=== PATIENT | female | born 1990 | race Caucasian/White ===

== ENCOUNTER 2017-09-13 13:07 | Emergency (ER) | payer MEDICAID ==
[2017-09-13] MEDS ORDERED: Albuterol/Ipratropium NEB.SOL* Albuterol 2.5 MG/Ipratropium 0.5 MG 3 ML INH ONE (15:31)
--- NOTE | 2017-09-13 15:36 | UC ---
Damon Deleon Gabriel, scribed for Viviana Varela MD on 09/13/17 at 1532 . Respiratory Complaint HPI - HPI Summary HPI Summary: This patient is a 26 year old F presenting to [facility] [place] a chief complaint of chest congestion since 09/09/17. The patient rates the pain 6/10 in severity. Patient reports dark brown productive cough, rhinorrhea, nasal congestion, fatigue, bilateral ear pain, subjective fever, chills, sore throat, and myalgia. Patient has been using her inhaler more than usual without progressive less relief. Pt has inhaler for asthma. no intubations, no hospitalizations. Pt denies sob. Pt has mirena ring Patients medication reviewed during this visit. - History of Current Complaint Chief Complaint: UCGeneralIllness Stated Complaint: URI Time Seen by Provider: 09/13/17 15:16 Hx Obtained From: Patient Hx Last Menstrual Period: spotting now Onset/Duration: Lasting Days - 4, Still Present Timing: Constant Severity Initially: Moderate Severity Currently: Moderate Pain Intensity: 6 Pain Scale Used: 0-10 Numeric Character: Cough: Productive Associated Signs And Symptoms: Positive: Fever, Nasal Congestion, Sinus Discomfort - Allergies/Home Medications Allergies/Adverse Reactions: Allergies Allergy/AdvReac Type Severity Reaction Status Date / Time MS Penicillins [Penicillins] Allergy Intermediate Hives/Diff. Verified 09/13/17 13:45 Breathing/I tching MS Terazosin [Terazosin] Allergy Intermediate Swelling Verified 09/13/17 13:45 MS Aspirin [Aspirin] AdvReac Intermediate Bleeding Verified 09/13/17 13:45 MS Progesterone AdvReac Intermediate Headache Verified 09/13/17 13:45 [Progesterone] Strawberries Allergy Severe Airway Uncoded 09/13/17 13:45 Obstruction Bees Allergy Intermediate Swelling Uncoded 09/13/17 13:45 Home Medications: Home Medications Albuterol HFA INHALER* [Ventolin HFA Inhaler*] 1 - 2 puff INH Q6HR PRN 09/13/17 [History Confirmed 09/13/17] Naproxen [Naprosyn 500 mg] 500 mg PO BID 09/13/17 [History Confirmed 09/13/17] PMH/Surg Hx/FS Hx/Imm Hx Previously Healthy: Yes Respiratory History: Asthma GI/ History: Other - Ovarian cysts Other GI/ History: ovarian cyst Other History Of: Negative For: Anticoagulant Therapy - Surgical History Surgical History: Yes Surgery Procedure, Year, and Place: TORSION CORRECTION- ovarian cysts. 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) Smoking Status (MU): Current Every Day Smoker Type: Cigarettes Amount Used/How Often: 1/2PPD Length of Time of Smoking/Using Tobacco: 6 YEARS Have You Smoked in the Last Year: Yes Household Exposure Type: Cigarettes - Immunization History Most Recent Tetanus Shot: 08/15/2010 Review of Systems Constitutional: Chills, Fatigue Eyes: Negative ENT: Negative, Sore Throat Respiratory: Shortness Of Breath, Cough Gastrointestinal: Negative Genitourinary: Negative Motor: Negative Neurovascular: Negative Musculoskeletal: Myalgia Neurological: Negative All Other Systems Reviewed And Are Negative: Yes Physical Exam Triage Information Reviewed: Yes Appearance: Well-Appearing, No Pain Distress, Well-Nourished Vital Signs: Initial Vital Signs Temp 98.3 F 09/13/17 13:38 Pulse 85 09/13/17 13:38 Resp 20 09/13/17 13:38 BP 114/63 09/13/17 13:38 Pulse Ox 99 09/13/17 13:38 Vital Signs Reviewed: Yes Eye Exam: Normal Eyes: Positive: Conjunctiva Clear ENT Exam: Normal ENT: Positive: Hearing grossly normal, Pharynx normal, Nasal congestion, TMs normal - scars from TM Dental Exam: Normal Neck exam: Normal Neck: Positive: Supple, Nontender, No Lymphadenopathy Respiratory Exam: Normal Respiratory: Positive: Chest non-tender, Rhonchi, Other: - + BS throughout scattered wheeze rhonci right base Cardiovascular Exam: Normal Cardiovascular: Positive: RRR, No Murmur, Pulses Normal Abdominal Exam: Normal Abdomen Description: Positive: Nontender, No Organomegaly, Soft Bowel Sounds: Positive: Present Musculoskeletal Exam: Normal Musculoskeletal: Positive: Strength Intact, ROM Intact Neurological Exam: Normal Neurological: Positive: Alert Psychological Exam: Normal Psychological: Positive: Normal Response To Family Skin Exam: Normal UC Diagnostic Evaluation - Laboratory O2 Sat by Pulse Oximetry: 99 - Radiology Radiology Interpretation Completed By: Radiologist - CXR reveals, NO EVIDENCE FOR ACTIVE CARDIOPULMONARY DISEASE. ED physician has reviewed this radiology report and agrees. Respiratory Course/Dx - Course Course Of Treatment: Pt with productive cough and wheeze progessive x 4 days. pt with h/o asthma. pt with fatigue, no documented fevers. pt with scattered wheeze and rhonci right base. cxr -? pna. Will start abx. mdi - Differential Dx/Diagnosis Provider Diagnoses: bronchitis Discharge - Discharge Plan Condition: Stable Disposition: HOME Prescriptions: Albuterol HFA INHALER* [Ventolin HFA Inhaler*] 1 - 2 puff INH Q4H PRN #1 mdi PRN Reason: wheeze Azithromycin TAB* [Zithromax TAB (Z-SADU) 250 mg #6 tabs] 2 tab PO .TODAY, THEN 1 DAILY #1 saud Patient Education Materials: Acute Bronchitis (ED) Referrals: Angel Sosa MD [Primary Care Provider] - Additional Instructions: - Stay well hydrated. Drink plenty of non-alcoholic, non-caffinated beverages - Take antibiotics 2 times a day as prescribed - Use inhaler - 2 puffs every 4 hours today, then eveyr 4 hours as needed - Okay to use over the counter medication for cough - After you have been on antibiotics for 2 days - change your toothbrush and your pillowcase. These infections are spread by secretions - do NOT share eating or drinking utensils - clean items you share with other people such as iphone, computer mouse, TV remote, etc. Once you have been on antibiotics for 2 days, change you pillowcase and your toothbrusth - Alternate ibuprofen (Advil, motrin) 600mg and tylenol eveyry 3 hours for pain or fever. Do NOT take ibuprofen if you are taking Naprosyn - you have been given a prescription for diflucan - okay to use if you develop a yeast infection following your antibiotic use - Call your doctor or return with questions or concerns The documentation as recorded by the Damon chew Gabriel accurately reflects the service I personally performed and the decisions made by , Viviana Varela MD.
[2017-09-13 16:06] VITALS: BP 122/76
--- NOTE | 2017-09-13 16:18 | RAD ---
INDICATION: Cough, asthma, rhonchi right base. COMPARISON: Comparison is made with a prior study from April 19, 2012. TECHNIQUE: Dual-energy PA and lateral views of the chest were obtained. FINDINGS: The heart is within normal limits in size. Mediastinal and hilar contours appear within normal limits. The lungs are clear. No pleural effusion is present. IMPRESSION: NO EVIDENCE FOR ACTIVE CARDIOPULMONARY DISEASE.
== END 2017-09-13 16:33 | disposition home or self-care (01) ==
LOC: UCEAST 13:07
DX: J40 Bronchitis, not specified as acute or chronic (principal); Z88.0 Allergy status to penicillin; Z88.6 Allergy status to analgesic agent; Z91.030 Bee allergy status; J45.909 Unspecified asthma, uncomplicated; F17.210 Nicotine dependence, cigarettes, uncomplicated
CPT/HCPCS: 71046; 99212; A9270-GY; G0463

== ENCOUNTER 2017-10-06 10:15 | Emergency (ER) | payer MEDICAID ==
--- NOTE | 2017-10-06 10:32 | UC ---
Skin Complaint HPI - HPI Summary HPI Summary: Concerned her Aisha is displaced and has ring worm on her chest - History of Current Complaint Chief Complaint: UCGeneralIllness Time Seen by Provider: 10/06/17 10:22 Stated Complaint: SKIN ISSUE AND PERSONAL ISSUE Hx Obtained From: Patient Hx Last Menstrual Period: mirena iud ?: No Onset/Duration: Lasting Days - 2 days rash on anterior right chest wall, Lasting Weeks - Mirena has felt out of place Onset Severity: Moderate Current Severity: Moderate Pain Intensity: 4 Pain Scale Used: 0-10 Numeric Character: Redness - anterior right chest wall-dry flakey Aggravating Factor(s): Nothing Alleviating Factor(s): Nothing Associated Signs & Symptoms: Positive: Rash. Negative: Red Streaks - Allergy/Home Medications Allergies/Adverse Reactions: Allergies Allergy/AdvReac Type Severity Reaction Status Date / Time aspirin Allergy increased Verified 10/06/17 10:25 bleeding Penicillins Allergy Rash Verified 10/06/17 10:23 terazosin Allergy Rash Verified 10/06/17 11:58 Strawberries Allergy Severe Airway Uncoded 09/13/17 13:45 Obstruction Bees Allergy Intermediate Swelling Uncoded 09/13/17 13:45 Review of Systems Constitutional: Negative Skin: Other - rash right anterior chest wall Eyes: Negative ENT: Negative Respiratory: Negative Cardiovascular: Negative Gastrointestinal: Negative Genitourinary: Negative, Other - IUD feels out of place Motor: Negative Neurovascular: Negative Musculoskeletal: Negative Neurological: Negative Psychological: Negative Is Patient Immunocompromised?: No All Other Systems Reviewed And Are Negative: Yes PMH/Surg Hx/FS Hx/Imm Hx Previously Healthy: No Respiratory History: Asthma Other History Of: Hepatitis C Negative For: Anticoagulant Therapy - Surgical History Surgical History: Yes Surgery Procedure, Year, and Place: TORSION CORRECTION- ovarian cysts. 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 Smoking Status (MU): Current Every Day Smoker Type: Cigarettes Amount Used/How Often: 1/2PPD Length of Time of Smoking/Using Tobacco: 6 YEARS Have You Smoked in the Last Year: Yes Household Exposure Type: Cigarettes Cessation Counseling: Patient Advised to Stop - Immunization History Most Recent Tetanus Shot: 08/15/2010 Physical Exam Triage Information Reviewed: Yes Appearance: Well-Appearing, No Pain Distress, Well-Nourished Vital Signs: Initial Vital Signs Temp 97.3 F 10/06/17 10:26 Pulse 95 10/06/17 10:26 Resp 16 10/06/17 10:26 BP 116/74 10/06/17 10:26 Pulse Ox 100 10/06/17 10:26 Vital Signs Reviewed: Yes Eye Exam: Normal Eyes: Positive: Conjunctiva Clear ENT Exam: Normal ENT: Positive: Normal ENT inspection, Hearing grossly normal, Pharynx normal, TMs normal, Uvula midline. Negative: Nasal congestion, Nasal drainage, Tonsillar swelling, Tonsillar exudate, Trismus, Muffled voice, Hoarse voice, Dental tenderness, Sinus tenderness Dental Exam: Normal Neck exam: Normal Neck: Positive: Supple, Nontender Respiratory Exam: Normal Respiratory: Positive: Chest non-tender, Lungs clear, Normal breath sounds, No respiratory distress, No accessory muscle use Cardiovascular Exam: Normal Cardiovascular: Positive: RRR, No Murmur, Pulses Normal, Brisk Capillary Refill Abdominal Exam: Normal Abdomen Description: Positive: Nontender, No Organomegaly, Soft. Negative: CVA Tenderness (R), CVA Tenderness (L) Musculoskeletal Exam: Normal Musculoskeletal: Positive: Strength Intact, ROM Intact, No Edema Neurological Exam: Normal Neurological: Positive: Alert, Muscle Tone Normal Psychological Exam: Normal Skin Exam: Normal - cm diameter red circular--dry area an right anterior chest wall Skin: Positive: rashes Diagnostics - Laboratory Diagnostic Studies Completed/Ordered: us- wnl iud inplace Course/Dx - Course Course Of Treatment: lotrisone on skin anterior chest wall, vaginal cultures to lab, ibuprofen prn, follow with pcp or planned parent bowles prn - Diagnoses Provider Diagnoses: PElvic pain, ring worm Discharge - Discharge Plan Condition: Stable Disposition: HOME Prescriptions: Clotrimazole/Betamethasone* [Lotrisone Cream*] 1 applic TOPICAL BID #45 gm Patient Education Materials: Ibuprofen (By mouth), Pelvic Pain in Women (ED) Referrals: Angel Sosa MD [Primary Care Provider] - If Needed
[2017-10-06 12:18] VITALS: BP 124/72
--- NOTE | 2017-10-06 12:36 | RAD ---
Indication: Pelvic pain. Real-time sonography of the pelvis was performed. The uterus measures 9.2 x 3.9 x 4.5 cm. Endometrial echo demonstrates a intrauterine device in appropriate position. Endometrial echo measures up to 6 mm. Right ovary measures 3.5 x 1.8 x 2.3 cm. Left ovary measures 3.0 x 2.3 x 2.0 cm. Doppler interrogation demonstrates flow in both ovaries. IMPRESSION: IUD in place. No adnexal masses are noted.
--- NOTE | 2017-10-07 15:31 | UC ---
- Progress Note Progress Note: Vaginal culture positive for gardnerella. Please let her know. Flagyl BID for 7 days sent to [facility]
== END 2017-10-06 12:47 | disposition home or self-care (01) ==
LOC: UCEAST 10:15
DX: R10.2 Pelvic and perineal pain (principal); B35.9 Dermatophytosis, unspecified; B96.89 Other specified bacterial agents as the cause of diseases classified elsewhere; Z87.891 Personal history of nicotine dependence
CPT/HCPCS: 76830; 81003; 84702; 87480; 87491; 87510; 87591; 87661; 99212; G0463

== ENCOUNTER 2017-11-09 13:52 | Emergency (ER) | payer OTHER ==
[2017-11-09 14:36] VITALS: BP 99/64
[2017-11-09] MEDS ORDERED: predniSONE TAB* 20 MG PO ONE (15:17)
[2017-11-09] MEDS ORDERED: Albuterol 2.5 MG/3 ML NEB.SOL* (0.083%) INH ONE (15:17)
--- NOTE | 2017-11-09 15:18 | UC ---
General HPI - HPI Summary HPI Summary: PT C/O BEING ILL FOR 2-3 WEEKS. C/O FERNANDES, COUGH, CHEST CONGES.TION, BURNING AND TIGHT LUNGS. NOTES HER CHEST IS SORE. HAS SUBJECTIVE FEVER AND CHILLS. WAS TX WITH A 5 DAY ANTIBIOTIC WITH NO RELIEF. +SBO AND GREEN SPUTUM. HAS HX ASTHMA AND INHALER IS NOT HELPING. TX ALEVE FLORAL MERCHANDISER. - History of Current Complaint Hx Obtained From: Patient Hx Last Menstrual Period: HAS AN IUD, DOES NOT HAVE REG PERIODS Onset/Duration: Gradual Onset Pain Intensity: 5 Alleviating: NOTHING Associated Signs & Symptoms: Positive: Cough, Fever, Headache, SOB <Deanna Og - Last Filed: 11/09/17 15:10> <Viviana Varela - Last Filed: 11/09/17 16:37> - History of Current Complaint Chief Complaint: UCRespiratory Stated Complaint: COUGH, VOICE LOSS Time Seen by Provider: 11/09/17 15:10 - Allergy/Home Medications Allergies/Adverse Reactions: Allergies Allergy/AdvReac Type Severity Reaction Status Date / Time aspirin Allergy increased Verified 11/09/17 14:26 bleeding Penicillins Allergy Rash Verified 11/09/17 14:26 terazosin Allergy Rash Verified 11/09/17 14:26 Strawberries Allergy Severe Airway Uncoded 11/09/17 14:26 Obstruction Bees Allergy Intermediate Swelling Uncoded 11/09/17 14:26 Home Medications: Home Medications Levonorgestrel (Iud) [Mirena IUD] 20 mcg IU 11/09/17 [History] PMH/Surg Hx/FS Hx/Imm Hx Respiratory History: Asthma Other History Of: Hepatitis C Negative For: Anticoagulant Therapy - Surgical History Surgical History: Yes Surgery Procedure, Year, and Place: TORSION CORRECTION- ovarian cysts. 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 Smoking Status (MU): Current Every Day Smoker Type: Cigarettes Amount Used/How Often: 1/2PPD Length of Time of Smoking/Using Tobacco: 6 YEARS Have You Smoked in the Last Year: Yes Household Exposure Type: Cigarettes - Immunization History Most Recent Tetanus Shot: 08/15/2010 Vaccination Up to Date: Yes <Deanna Og - Last Filed: 11/09/17 15:10> Review of Systems Constitutional: Fever, Chills Skin: Negative Eyes: Negative ENT: Negative Respiratory: Shortness Of Breath, Cough Cardiovascular: Negative Gastrointestinal: Negative Genitourinary: Negative Motor: Negative Neurovascular: Negative Musculoskeletal: Negative Neurological: Headache Psychological: Negative Is Patient Immunocompromised?: No All Other Systems Reviewed And Are Negative: Yes <Deanna Og - Last Filed: 11/09/17 15:10> Physical Exam Triage Information Reviewed: Yes Appearance: Well-Appearing Vital Signs: Initial Vital Signs Temp 98.4 F 11/09/17 14:27 Pulse 67 11/09/17 14:27 Resp 16 11/09/17 14:27 BP 99/64 11/09/17 14:27 Pulse Ox 98 11/09/17 14:27 Vital Signs Reviewed: Yes Eyes: Positive: Conjunctiva Clear ENT: Positive: Pharynx normal, TMs normal. Negative: Nasal congestion, Nasal drainage Respiratory: Positive: Lungs clear, No respiratory distress, Decreased breath sounds Cardiovascular: Positive: RRR, No Murmur Abdomen Description: Positive: Nontender, No Organomegaly, Soft Bowel Sounds: Positive: Present Musculoskeletal: Positive: ROM Intact Neurological: Positive: Alert Psychological: Positive: Age Appropriate Behavior Skin Exam: Normal <Deanna Og - Last Filed: 11/09/17 15:10> Vital Signs: Initial Vital Signs Temp 98.4 F 11/09/17 14:27 Pulse 67 11/09/17 14:27 Resp 16 11/09/17 14:27 BP 99/64 11/09/17 14:27 Pulse Ox 98 11/09/17 14:27 <Viviana Varela - Last Filed: 11/09/17 16:37> Diagnostics - Radiology No standard instances Xray Interpretation: No Acute Changes Radiology Interpretation Completed By: Radiologist <Deanna Og - Last Filed: 11/09/17 15:10> Re-Evaluation - Re-Evaluation First Eval Re-Evaluation Time: 15:50 Change: Improved - IMPROVED AERATION, EASIER TO BREATHE, LESS COUGH. <Deanna Og - Last Filed: 11/09/17 15:10> Course/Dx - Course Course Of Treatment: non toxic, not hypoxic. ill 2-3 weeks with ongoing f/c's and asthma. cxr=nad. will tx with steroid, albuterol and doxycycline for presumptive bacterial infection. pt will take risk of diarrhea and c-diff from repeat antibiotic. she agrees to start probiotics as well. - Differential Dx - Multi-Symptom Provider Diagnoses: exacerbation asthma. bronchitis <Deanna Og - Last Filed: 11/09/17 15:10> Discharge - Sign-Out/Discharge Documenting (check all that apply): Discharge - Billing Disposition and Condition Condition: IMPROVED Disposition: HOME <Deanna Og - Last Filed: 11/09/17 15:10> - Billing Disposition and Condition Condition: IMPROVED Disposition: HOME <Viviana Varela - Last Filed: 11/09/17 16:37> - Discharge Plan Condition: Improved Disposition: HOME Prescriptions: Albuterol HFA INHALER* [Ventolin HFA Inhaler*] 2 puff INH Q6H #1 mdi DOXYcycline CAP(*) [DOXYcycline 100MG CAP(*)] 100 mg PO BID 10 Days #20 cap predniSONE TAB* [Deltasone TAB*] 40 mg PO DAILY #8 tab Patient Education Materials: Asthma (DC) Referrals: Angel Sosa MD [Primary Care Provider] - 5 Days Attestation Statement User Type: Provider - I was available for consult. This patient was seen by the advanced practice provider. The patient was not presented to, seen by, or examined by me.-Estrada <Viviana Varela - Last Filed: 11/09/17 16:37>
--- NOTE | 2017-11-09 15:38 | RAD ---
HISTORY: Cough, shortness of breath, COMPARISONS: September 13, 2017 VIEWS: 4: Frontal dual-energy and lateral views of the chest. FINDINGS: CARDIOMEDIASTINAL SILHOUETTE: The cardiomediastinal silhouette is normal. RYLIE: The rylie are normal. PLEURA: The costophrenic angles are sharp. No pleural abnormalities are noted. LUNG PARENCHYMA: The lungs are clear. ABDOMEN: The upper abdomen is clear. There is no subphrenic gas. BONES AND SOFT TISSUES: No bone or soft tissue abnormalities are noted. OTHER: None. IMPRESSION: NO ACTIVE CARDIOPULMONARY DISEASE.
== END 2017-11-09 16:04 | disposition home or self-care (01) ==
LOC: UCCORT 13:52
DX: J45.901 Unspecified asthma with (acute) exacerbation (principal); F17.210 Nicotine dependence, cigarettes, uncomplicated; Z88.6 Allergy status to analgesic agent; Z88.0 Allergy status to penicillin; Z88.8 Allergy status to other drugs, medicaments and biological substances
CPT/HCPCS: 71046; 87502; 99212; G0463; J7512

== ENCOUNTER 2017-11-30 16:22 | Emergency (ER) | payer OTHER ==
[2017-11-30 16:33] VITALS: BP 106/70
--- NOTE | 2017-11-30 17:26 | UC ---
Throat Pain/Nasal Elliott HPI - HPI Summary HPI Summary: 27 female presents to the urgent care c/o nasal congestion, body aches, headache, nausea, low grade fever, sore throat, dry cough for the past 2 days. Pt also c/o mild pelvic cramping w/ white vaginal discharge w/ itchiness for the past 2 days. She is not sure if she is . She was on Mirena and was removed on 11/21/2017 and she had vaginal bleeding for 3 days. Pt has taking Nyquill to alleviate symptoms. Pain w/ swallowing is 4/10. She had Hx of gonorrhea at age 17. Pt denies SOB, chest pain, abdominal pain, N/V/D, urinary symptoms, fever, lower back pain. - History of Current Complaint Chief Complaint: UCGeneralIllness Stated Complaint: Ear pain, congested, sore throat Time Seen by Provider: 11/30/17 17:24 Hx Obtained From: Patient Hx Last Menstrual Period: unknown Onset/Duration: Gradual Onset, Lasting Days - 2 days, Still Present, Worse Since - today Severity: Mild Pain Intensity: 4 Pain Scale Used: 0-10 Numeric Cough: Nonproductive Associated Signs & Symptoms: Positive: Sinus Discomfort, Nasal Discharge. Negative: Fever - Epiglottits Risk Factors Epiglottis Risk Factors: Negative - Allergies/Home Medications Allergies/Adverse Reactions: Allergies Allergy/AdvReac Type Severity Reaction Status Date / Time aspirin Allergy increased Verified 11/30/17 16:33 bleeding Penicillins Allergy Rash Verified 11/30/17 16:33 terazosin Allergy Rash Verified 11/30/17 16:33 Strawberries Allergy Severe Airway Uncoded 11/30/17 16:33 Obstruction Bees Allergy Intermediate Swelling Uncoded 11/30/17 16:33 PMH/Surg Hx/FS Hx/Imm Hx Previously Healthy: Yes Respiratory History: Asthma Other History Of: Hepatitis C Negative For: Anticoagulant Therapy - Surgical History Surgical History: Yes Surgery Procedure, Year, and Place: TORSION CORRECTION- ovarian cysts. 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 Smoking Status (MU): Current Every Day Smoker Type: Cigarettes Amount Used/How Often: 1/2PPD Length of Time of Smoking/Using Tobacco: 6 YEARS Have You Smoked in the Last Year: Yes Household Exposure Type: Cigarettes - Immunization History Most Recent Tetanus Shot: 08/15/2010 Vaccination Up to Date: Yes Review of Systems Constitutional: Fever - subjective at home, Chills Skin: Negative Eyes: Negative ENT: Sore Throat, Nasal Discharge, Sinus Congestion, Sinus Pain/Tenderness Respiratory: Cough - dry Cardiovascular: Negative Gastrointestinal: Nausea Genitourinary: Negative Motor: Negative Neurovascular: Negative Musculoskeletal: Negative Neurological: Negative Psychological: Negative Is Patient Immunocompromised?: No All Other Systems Reviewed And Are Negative: Yes Physical Exam - Summary Physical Exam Summary: Vital signs: reviewed General: well developed, well nourished female sitting in the examining table w/o any acute distress. Head: Normocephalic, no lesions. Eyes: PERRLA, EOM's full, conjunctiva clear, fundi grossly normal. Ears: EAC's clear, TM's normal. Nose: erythematous nasal Mucosa w/ clear nasal discharge. no obstruction. MOUTH: Positive pharynx with erythema, no exudates, palatal petechiae. B/L tonsillar enlargement with no exudate. Uvula in midline. NECK: Supple, trachea is midline, Positive anterior cervical lymphadenopathy, no JVD, no carotid bruit, no c-spine tenderness, neck with full ROM. No meningeal signs, no Kernig's or brudzinskis signs. Heart: RR, no murmurs, no rubs, no gallops. Abdomen: Soft, no tenderness, no masses, BS normal. : Normal, no lesions, no discharge, no hernias noted. Pelvic: i was assited by nurse Eileen. External genitalia within normal limits. There is no lesions there is no masses noted. Speculum exam: The vaginal lyman are within normal limits w/ white cottage cheese vaginal discharge, no the lesions or rashes. The cervix is closed with no lesions or masses. There is no CMT's, and no adnexal masses. Sample sent to Lab for G/C and Affirm panel. Rectal: No lesions, no hemorrhoids, Back: Normal curvature, no tenderness. Extremities: FROM, no deformities, no edema, no erythema. Neuro: Physiological, no localizing findings. Skin: Normal, no rashes, no lesions noted. Triage Information Reviewed: Yes Vital Signs: Initial Vital Signs Temp 97.8 F 11/30/17 16:29 Pulse 84 11/30/17 16:29 Resp 19 11/30/17 16:29 BP 106/70 11/30/17 16:29 Pulse Ox 98 11/30/17 16:29 Throat Pain/Nasal Course/Dx - Course Course Of Treatment: 27 female presents to the urgent care c/o nasal congestion , body aches, headache, nausea, low grade fever, sore throat, dry cough for the past 2 days. Pt also c/o mild pelvic cramping w/ white vaginal discharge for the past 2 days. She is not sure if she is . She was on Mirena and was removed on 11/21/2017 and she had vaginal bleeding for 3 days. Pt has taking Nyquill to alleviate symptoms. Pain w/ swallowing is 4/10. She had Hx of gonorrhea at age 17. Pt denies SOB, chest pain, abdominal pain, N/V/D, urinary symptoms, fever, lower back pain. Pt declines STD's sreening since she recently had them done. Hx obtained.Pt w/ a white cottage cheese vaginal discharge on pelvic examination and URI on PE. Pt w/ probably Vulvovaginal candidiasis. Pt Rx Fluconazole 150mg PO. Sample sent to Lab for Affirm panel to r/o any abnormality. Pt will be notified of results. UA: +Bilirubin and ketones, test: negative. Rapdi strep: negative, Influenxa A&B: negative. Most likley and URI. Pt also advised to use saline drops to clear sinuses, and to increase fluid intake, rest and eat well. Pt understood and agreed with plan of care. - Differential Dx/Diagnosis Differential Diagnosis/HQI/PQRI: Influenza, Laryngitis, Mononucleosis, Otitis Media, Pharyngitis, Sinusitis, Tonsillitis, Other - , STD's, vaginitis Provider Diagnoses: 1-Acute upper respiratory infection. 2-adria vaginitis. 3-Screening for pregnacy Discharge - Sign-Out/Discharge Documenting (check all that apply): Discharge - Discharge Plan Condition: Good Disposition: HOME Prescriptions: Fluconazole [Fluconazole 150 mg tab] 150 mg PO ONCE #1 tablet metroNIDAZOLE [Flagyl] 500 mg PO BID #14 tablet Patient Education Materials: Upper Respiratory Infection (ED), Yeast Infection (ED) Referrals: [facility] – [place] PHYS[facility]IAN REFERRAL [Outside] - 3 Days Additional Instructions: 1- Please take medications as directed for your yeast infection. 2- Specimen were sent to lab, if anything abnormal you will receive a call from us for further treatment. 3-use saline drops as directed to clear sinuses. Increase fluid intake, eat well and rest. 4-If not improvement of symptoms please return to the urgent care for further treatment - Billing Disposition and Condition Condition: GOOD Disposition: HOME
--- NOTE | 2017-12-01 15:16 | UC ---
- Progress Note Progress Note: PLEASE NOTIFY PT OF BV FLAGYL 500 BID FOR 7 DAYS ERXED Discharge - Sign-Out/Discharge Documenting (check all that apply): Post-Discharge Follow Up - Discharge Plan Condition: Good Disposition: HOME Prescriptions: Fluconazole [Fluconazole 150 mg tab] 150 mg PO ONCE #1 tablet metroNIDAZOLE [Flagyl] 500 mg PO BID #14 tablet Patient Education Materials: Upper Respiratory Infection (ED), Yeast Infection (ED) Referrals: [facility] – [place] [facility] REFERRAL [Outside] - 3 Days Additional Instructions: 1- Please take medications as directed for your yeast infection. 2- Specimen were sent to lab, if anything abnormal you will receive a call from us for further treatment. 3-use saline drops as directed to clear sinuses. Increase fluid intake, eat well and rest. 4-If not improvement of symptoms please return to the urgent care for further treatment - Billing Disposition and Condition Condition: GOOD Disposition: HOME
== END 2017-11-30 18:46 | disposition home or self-care (01) ==
LOC: UCEAST 16:22
DX: J06.9 Acute upper respiratory infection, unspecified (principal); B37.3 Candidiasis of vulva and vagina; Z32.02 Encounter for pregnancy test, result negative; J45.909 Unspecified asthma, uncomplicated; Z88.6 Allergy status to analgesic agent; Z88.0 Allergy status to penicillin; F17.210 Nicotine dependence, cigarettes, uncomplicated
CPT/HCPCS: 81003; 84702; 87480; 87502; 87510; 87651; 87660; 99212; G0463

== ENCOUNTER 2017-12-05 15:11 | Emergency (ER) | payer OTHER ==
[2017-12-05 15:35] VITALS: BP 111/71
--- NOTE | 2017-12-05 16:35 | UC ---
Candace Deleon Edward, scribed for Viviana Varela MD on 12/05/17 at 1539 . Respiratory Complaint HPI - HPI Summary HPI Summary: 27 y/o female presents to [facility] c/o worsening nasal congestion and bilateral ear pain L>R. Pt was seen at [facility] on 12/01/17 for similar sx, dx with URI, but sx have worsened since. Pt also c/o productive cough, coughing up thick yellow mucus. + sinus congestion, PND. No fever, chills. Decreased appetite. Associated sx: chills, bilateral ear pain (L worse than R). Denies N/V. Pt unsure about fevers. Pt took Nyquil to treat sx. Positive sick contact at home. Pt allergic to penicillin. Smoker. Pt's medications reviewed on visit. Pt denies - History of Current Complaint Chief Complaint: UCRespiratory Stated Complaint: URI Time Seen by Provider: 12/05/17 15:35 Hx Obtained From: Patient Hx Last Menstrual Period: 11/21/2017 Onset/Duration: Lasting Days, Still Present Severity Initially: Mild Pain Intensity: 3 Pain Scale Used: 0-10 Numeric Character: Cough: Productive Associated Signs And Symptoms: Positive: Chills, Nasal Congestion - Allergies/Home Medications Allergies/Adverse Reactions: Allergies Allergy/AdvReac Type Severity Reaction Status Date / Time aspirin Allergy increased Verified 11/30/17 16:33 bleeding Penicillins Allergy Rash Verified 11/30/17 16:33 terazosin Allergy Rash Verified 11/30/17 16:33 Strawberries Allergy Severe Airway Uncoded 11/30/17 16:33 Obstruction Bees Allergy Intermediate Swelling Uncoded 11/30/17 16:33 PMH/Surg Hx/FS Hx/Imm Hx Previously Healthy: No Other Endocrine History: Negative: thyroid disease Respiratory History: Asthma Other History Of: Hepatitis C Negative For: Anticoagulant Therapy - Surgical History Surgical History: Yes Surgery Procedure, Year, and Place: TORSION CORRECTION- ovarian cysts. 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 Smoking Status (MU): Current Every Day Smoker Type: Cigarettes Amount Used/How Often: 1/2PPD Length of Time of Smoking/Using Tobacco: 6 YEARS Have You Smoked in the Last Year: Yes Household Exposure Type: Cigarettes - Immunization History Most Recent Tetanus Shot: 08/15/2010 Vaccination Up to Date: Yes Review of Systems Constitutional: Chills Skin: Negative Eyes: Negative ENT: Ear Ache - bilateral, Sinus Congestion Respiratory: Cough - productive Cardiovascular: Negative Gastrointestinal: Negative Genitourinary: Negative Motor: Negative Neurovascular: Negative Musculoskeletal: Negative Neurological: Negative Psychological: Negative All Other Systems Reviewed And Are Negative: Yes Physical Exam Triage Information Reviewed: Yes Appearance: Well-Appearing, No Pain Distress, Well-Nourished Vital Signs: Initial Vital Signs Temp 97.5 F 12/05/17 15:30 Pulse 106 12/05/17 15:30 Resp 18 12/05/17 15:30 BP 111/71 12/05/17 15:30 Pulse Ox 99 12/05/17 15:30 Vital Signs Reviewed: Yes Eye Exam: Normal Eyes: Positive: Conjunctiva Clear ENT: Positive: Hearing grossly normal, Pharynx normal, Nasal congestion, TM bulging, TM red, Uvula midline, Other - TM x 2 ++ fluid, erythema, buldging L>R turbinates inflammed + PND No exudate, no erythema uvula midline. Negative: TMs normal, Tonsillar swelling, Tonsillar exudate Dental Exam: Normal Neck exam: Normal Neck: Positive: Supple, Nontender, No Lymphadenopathy Respiratory Exam: Normal Respiratory: Positive: Chest non-tender, Lungs clear, Normal breath sounds, No respiratory distress, Other: - mild cough Cardiovascular Exam: Normal Cardiovascular: Positive: RRR, No Murmur, Pulses Normal Abdominal Exam: Normal Abdomen Description: Positive: Nontender, No Organomegaly, Soft Bowel Sounds: Positive: Present Musculoskeletal Exam: Normal Musculoskeletal: Positive: Strength Intact Neurological Exam: Normal Neurological: Positive: Alert Psychological Exam: Normal Psychological: Positive: Normal Response To Family Skin Exam: Normal UC Diagnostic Evaluation - Laboratory O2 Sat by Pulse Oximetry: 99 Respiratory Course/Dx - Course Course Of Treatment: Pt with progessive sinus congestion, pnd, sore throat and ear pain. Pt denies fevers, + chills. Pt with b/l TM bulging, fluid, erythema. Will RX abx, flonase. PCN - unsure reaction - states was infant. denies facial edema or difficulty breathing. Pt has taken Omnicef and cephalexin without difficulty Will Rx omnicef. hydrate. secretion precaution. OTC decongestant - Differential Dx/Diagnosis Provider Diagnoses: OM b/l Discharge - Sign-Out/Discharge Documenting (check all that apply): Discharge/Admit/Transfer - Discharge Plan Condition: Stable Disposition: HOME Prescriptions: Cefdinir [Cefdinir 300 MG CAP] 300 mg PO BID #14 capsule Fluticasone NASAL SPRAY 50MCG* [Flonase NASAL SPRAY 50MCG*] 2 spray BOTH NARES DAILY #1 btl Patient Education Materials: Ear Infection (ED) Referrals: No Primary Care Phys,NOPCP [Primary Care Provider] - Additional Instructions: - Stay well hydrated. Drink plenty of non-alcoholic, non-caffinated beverages. - Alternate ibuprofen (Advil, Motrin) 600mg and Tylenol every 3 hours for pain or fever. Take with food. Do NOT take for more than 4-5 days. - take antibiotics as prescribed until gone - These infections are spread by secretions - do NOT share eating or drinking utensils - clean items you share with other people such as cell phones, computer mouse, TV remote, computer tablets,etc. Once you start to feel better, change your toothbrush and your pillowcase. Once you have been on antibiotics for 2 days, change your toothbrush and your pillowcase. - get plenty of restful sleep - humidify the air in the room where you sleep - boil water, run a hot steam shower, vaporizer, cups of water by heat register - okay to take over the counter decongestant and cough medication - use nasal spray as instructed - contact your doctor or return with questions or concerns - Billing Disposition and Condition Condition: STABLE Disposition: HOME The documentation as recorded by the Candace chew Edward accurately reflects the service I personally performed and the decisions made by , Viviana Varela MD.
== END 2017-12-05 16:28 | disposition home or self-care (01) ==
LOC: UCEAST 15:11
DX: H66.93 Otitis media, unspecified, bilateral (principal); J45.909 Unspecified asthma, uncomplicated; Z88.6 Allergy status to analgesic agent; Z88.0 Allergy status to penicillin; F17.210 Nicotine dependence, cigarettes, uncomplicated
CPT/HCPCS: 99212; G0463

== ENCOUNTER 2018-08-13 13:31 | Emergency (ER) | payer OTHER ==
[2018-08-13 13:40] VITALS: BP 110/65
[2018-08-13 14:28] LABS: ABS Basophils 0 10^3/ul (0-0.2); ABS Eosinophils 0.2 10^3/ul (0-0.6); ABS Lymphocytes 1.8 10^3/ul (1.0-4.8); ABS Monocytes 0.3 10^3/ul (0-0.8); ABS Neutrophils 2.6 10^3/ul (1.5-7.7); ABS Nucleated RBC 0 10^3/ul; Eosinophil % 4.6 %; Hematocrit 39 % (35-47); Hemoglobin 13.2 g/dl (12.0-16.0); Lymphocyte % 36.4 %; Mean Corpuscular HGB Conc 34 g/dl (31-36); Mean Corpuscular Hemoglobin 31 pg (27-31); Mean Corpuscular Volume 93 fL (80-97); Mean Platelet Volume 7.9 fL (7.4-10.4); Nucleated Red Blood Cells % 0.1; Platelet Count 198 10^3/ul (150-450); Red Cell Distribution Width 14 % (10.5-15); White Blood Count 4.9 10^3/ul (3.5-10.8)
[2018-08-13 14:44] LABS: ALT 9 U/L (7-52); AST 13 U/L (13-39); Albumin 3.9 g/dL (3.2-5.2); Albumin/Globulin Ratio 1.6 (1-3); Alkaline Phosphatase 53 U/L (34-104); Anion Gap 5 mmol/L (2-11); BUN/Creatinine Ratio 22.4 (8-20); Blood Urea Nitrogen 13 mg/dL (6-24); C Reactive Protein 1.44 mg/L (<8.01); CO2 Carbon Dioxide 27 mmol/L (22-32); Calcium 8.9 mg/dL (8.6-10.3); Chloride 106 mmol/L (101-111); EGFR Non-African American 125.7 (>60); Globulin 2.5 g/dL (2-4); Glucose 65 mg/dL (70-100); Potassium 3.9 mmol/L (3.5-5.0); Sodium 138 mmol/L (135-145); Total Protein 6.4 g/dL (6.4-8.9)
[2018-08-13] MEDS: Acetaminophen TAB* 325 MG PO ONE (14:56)
[2018-08-13 15:01] LABS: Urine Appearance Clear; Urine Bilirubin Negative (Negative); Urine Blood Negative (Negative); Urine Color Straw; Urine Glucose Negative (Negative); Urine Ketones Negative (Negative); Urine Nitrite Negative (Negative); Urine Protein Negative (Negative); Urine Specific Gravity 1.006 (1.010-1.030); Urine Urobilinogen Negative (Negative)
--- NOTE | 2018-08-13 15:06 | ED ---
Abdominal Pain/Female - HPI Summary HPI Summary: The patient is a 27 y/o F presenting to [facility] with a chief complaint of sudden onset intermittent left-sided suprapubic pain starting in the last few days that worsens with activity She reports hx of ovarian cysts in the same area, with past surgical removal including one that was the size of her fist that twisted her canal and fallopian tube; tubal fhx in mother. She also notes that her LNMP was the end of May 2018. She is unsure if she is because she states that with her last two children, urine stick tests came back negative until she was about 10 weeks . She additionally c/o nausea, frequent urination, white vaginal discharge, and fatigue, which are symptoms similar to previous pregnancies. The pain is currently rated 7/10 in severity. She denies changes in BM, diarrhea, dysuria, hematuria, and diaphoresis. Her left ear is also in pain, and she reports that she had tympanostomy tubes placed as child, but when they were supposed to be removed, the physician ended up moving the left one further into the ear. She takes Suboxone 8mg in the morning and 4mg at night, as well as Ibuprofen for pain management. - History of Current Complaint Chief Complaint: EDAbdPain Stated Complaint: LEFT ABD PAIN Time Seen by Provider: 08/13/18 14:32 Hx Obtained From: Patient Hx Last Menstrual Period: 11/21/2017 Onset/Duration: Sudden Onset, Lasting Days, Still Present Timing: Days Severity Initially: Moderate Severity Currently: Moderate Pain Intensity: 7 Pain Scale Used: 0-10 Numeric Location: Suprapubic - primarily on left side Radiates: No Aggravating Factor(s): Nothing Alleviating Factor(s): Other: - Ibuprofen Associated Signs and Symptoms: Positive: Vaginal Discharge - white, but, Nausea , Other: - POSITIVE: frequent urination, fatigue; NEGATIVE: changes in BM, dysuria, hematuria. Negative: Diaphoresis, Vomiting, Diarrhea Allergies/Adverse Reactions: Allergies Allergy/AdvReac Type Severity Reaction Status Date / Time aspirin Allergy increased Verified 08/13/18 13:36 bleeding Penicillins Allergy Rash Verified 08/13/18 13:36 terazosin Allergy Rash Verified 08/13/18 13:36 Strawberries Allergy Severe Airway Uncoded 08/13/18 13:36 Obstruction Bees Allergy Intermediate Swelling Uncoded 08/13/18 13:36 Home Medications: Home Medications Buprenorp/Nalox 8-2 MG FILM [Suboxone 8 mg-2 mg Sl Film] 1 film PO DAILY [History Confirmed 08/13/18] PMH/Surg Hx/FS Hx/Imm Hx Endocrine/Hematology History: Denies: Hx Anticoagulant Therapy, Hx Diabetes, Hx Thyroid Disease Cardiovascular History: Denies: Hx Hypertension, Hx Pacemaker/ICD Respiratory History: Reports: Hx Asthma Denies: Hx Chronic Obstructive Pulmonary Disease (COPD) GI History: Denies: Hx Ulcer History: Denies: Hx Renal Disease Neurological History: Denies: Hx Dementia, Hx Seizures Psychiatric History: Denies: Hx Substance Abuse - Surgical History Surgery Procedure, Year, and Place: TORSION CORRECTION- ovarian cysts. tympanostomy tube insertion Infectious Disease History: Yes Infectious Disease History: Reports: Hx Hepatitis - C- completed treatment, Hx of Known/Suspected MRSA Denies: Hx Clostridium Difficile, Hx Human Immunodeficiency Virus (HIV), Hx Shingles, Hx Tuberculosis, Hx Known/Suspected VRE, Hx Known/Suspected VRSA, History Other Infectious Disease, Traveled Outside the [place] in Last 30 Days - Family History Known Family History: Positive: Cardiac Disease, Hypertension, Diabetes Negative: Renal Disease, Respiratory Disease, Seizure Disorder - Social History Alcohol Use: None Hx Substance Use: No Substance Use Type: Reports: None 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 Negative: Fever, Chills, Skin Diaphoresis Negative: Erythema Positive: Ear Ache - left ear, Other - nasal congestion. Negative: Sore Throat Negative: Chest Pain Positive: Cough. Negative: Shortness Of Breath Positive: Abdominal Pain - suprapubic, especially on left side, Nausea. Negative: Vomiting, Diarrhea Positive: discharge - white but not abnormal, frequency - increased. Negative: dysuria, hematuria Negative: Myalgia, Edema Negative: Rash Neurological: Other - NEGATIVE: dizziness All Other Systems Reviewed And Are Negative: Yes Physical Exam - Summary Physical Exam Summary: Constitutional: Well-developed, Well-nourished, Alert. (-) Distressed Skin: Warm, Dry HENT: Normocephalic; Atraumatic Eyes: Conjunctiva normal Neck: Musculoskeletal ROM normal neck. (-) JVD, (-) Stridor, (-) Tracheal deviation Cardio: Rhythm regular, rate normal, Heart sounds normal; Intact distal pulses; The pedal pulses are 2+ and symmetric. Radial pulses are 2+ and symmetric. (-) Murmur Pulmonary/Chest wall: Effort normal. (-) Respiratory distress, (-) Wheezes, (-) Rales Abd: Soft, Left adnexal tenderness, (-) epigastric tenderness, (-) Distension, ( -) Guarding, (-) Rebound Musculoskeletal: (-) Edema Lymph: (-) Cervical adenopathy Neuro: Alert, Oriented x3 Psych: Mood and affect Normal Triage Information Reviewed: Yes Vital Signs On Initial Exam: Initial Vitals Temp Pulse Resp BP Pulse Ox 98 F 87 14 110/65 99 08/13/18 13:38 08/13/18 13:38 08/13/18 13:38 08/13/18 13:38 08/13/18 13:38 Vital Signs Reviewed: Yes Diagnostics - Vital Signs Vital Signs Temp Pulse Resp BP Pulse Ox 08/13/18 13:38 98 F 87 14 110/65 99 - Laboratory Lab Results: Lab Results 08/13/18 08/13/18 08/13/18 Range/Units 14:13 14:13 14:13 WBC 4.9 (3.5-10.8) 10^3/ul RBC 4.20 (4.00-5.40) 10^6/ul Hgb 13.2 (12.0-16.0) g/dl Hct 39 (35-47) % MCV 93 (80-97) fL MCH 31 (27-31) pg MCHC 34 (31-36) g/dl RDW 14 (10.5-15) % Plt Count 198 (150-450) 10^3/ul MPV 7.9 (7.4-10.4) fL Neut % (Auto) 52.7 % Lymph % (Auto) 36.4 % [place] % (Auto) 5.7 % Eos % (Auto) 4.6 % Baso % (Auto) 0.6 % Absolute Neuts (auto) 2.6 (1.5-7.7) 10^3/ul Absolute Lymphs (auto) 1.8 (1.0-4.8) 10^3/ul Absolute Monos (auto) 0.3 (0-0.8) 10^3/ul Absolute Eos (auto) 0.2 (0-0.6) 10^3/ul Absolute Basos (auto) 0 (0-0.2) 10^3/ul Absolute Nucleated RBC 0 10^3/ul Nucleated RBC % 0.1 Sodium 138 (135-145) mmol/L Potassium 3.9 (3.5-5.0) mmol/L Chloride 106 (101-111) mmol/L Carbon Dioxide 27 (22-32) mmol/L Anion Gap 5 (2-11) mmol/L BUN 13 (6-24) mg/dL Creatinine 0.58 (0.51-0.95) mg/dL Est GFR ( Amer) 152.1 (>60) Est GFR (Non-Af Amer) 125.7 (>60) BUN/Creatinine Ratio 22.4 H (8-20) Glucose 65 L (70-100) mg/dL Lactic Acid 1.4 (0.5-2.0) mmol/L Calcium 8.9 (8.6-10.3) mg/dL Total Bilirubin 0.30 (0.2-1.0) mg/dL AST 13 (13-39) U/L ALT 9 (7-52) U/L Alkaline Phosphatase 53 (34-104) U/L C-Reactive Protein 1.44 (<8.01) mg/L Total Protein 6.4 (6.4-8.9) g/dL Albumin 3.9 (3.2-5.2) g/dL Globulin 2.5 (2-4) g/dL Albumin/Globulin Ratio 1.6 (1-3) Lipase 22 (11.0-82.0) U/L Result Diagrams: 08/13/18 14:13 08/13/18 14:13 Lab Statement: Any lab studies that have been ordered have been reviewed, and results considered in the medical decision making process. - Ultrasound No standard instances Ultrasound Interpretation Completed By: Radiologist Summary of Ultrasound Findings: Pelvis US: 1. Sonographic findings could be compatible with an involuting dominant left ovarian follicle. Please correlate to the patient's stage of menses and also correlate to beta hCG. If the patient' s beta hCG is positive this finding could be concerning for an ectopic . 2. Otherwise normal and age-appropriate transabdominal pelvic ultrasound. Re-Evaluation - Re-Evaluation First Eval Re-Evaluation Time: 15:25 Change: Unchanged Comment: The patient was given orange juice for hypoglycemia. Abdominal Pain Fem Course/Dx - Course Course Of Treatment: The patient is a 27 y/o F presenting to [facility] with a chief complaint of intermittent left-sided suprapubic pain starting in the last few days that worsens with activity She reports hx of ovarian cysts in the same area , with past surgical removal including one that was the size of her fist that twisted her canal and fallopian tube; tubal fhx in mother. She also notes that her LNMP was the end of May 2018, but she is unsure if she is . She additionally c/o nausea, frequent urination, white vaginal discharge, and fatigue, which are symptoms similar to previous pregnancies. She denies changes in BM, diarrhea, dysuria, hematuria, and diaphoresis. Her left ear is also in pain, and she reports that she had tympanostomy tubes placed as child. She takes Suboxone and Ibuprofen for pain management. Upon physical exam , the patient exhibits left adnexal tenderness. In the ED course, the patient was administered Tylenol. Blood work reveals decreased glucose and negative hCG. UA is unremarkable. Pelvis US reveals involuting left ovarian follicle. Since beta hCG is negative, ectopic is ruled out. She is diagnosed with left ovarian cyst and otitis media. She is given a prescription for Zithromax and Lidocaine patch. The patient eloped before proper discharge with re-evaluation and US results were confirmed. - Diagnoses Provider Diagnoses: Left ovarian cyst, Otitis media Discharge - Sign-Out/Discharge Documenting (check all that apply): Patient Departure - Patient eloped before offical discharge. - Discharge Plan Condition: Stable Disposition: ELOPEMENT Prescriptions: Azithromycin TAB* [Zithromax TAB (Z-SAUD) 250 mg #6 tabs] 2 tab PO .TODAY, THEN 1 DAILY #1 saud Lidocaine PATCH 5%* [Lidoderm 5% Patch*] 1 patch TRANSDERM DAILY #14 patch Patient Education Materials: Ovarian Cyst (ED), Ear Infection (ED) Referrals: [facility] [place] PH[facility]ICIAN REFERRAL [Outside] - 3 Days Evelin Shelton MD [Medical Doctor] - 3 Days Additional Instructions: Follow up your primary care physician in 2-3 days. Follow up with [facility] in 2-3 days. Return to the emergency department for any new or worsening symptoms. - Billing Disposition and Condition Condition: STABLE Disposition: Elopement
[2018-08-13 15:21] LABS: HCG Pregnancy < 0.60 mIU/mL
== END 2018-08-13 19:08 | disposition home or self-care (01) ==
LOC: ED 13:31
DX: N83.202 Unspecified ovarian cyst, left side (principal); H66.92 Otitis media, unspecified, left ear; F17.210 Nicotine dependence, cigarettes, uncomplicated; Z88.0 Allergy status to penicillin
CPT/HCPCS: 36415; 76856; 80053; 81003; 83605; 83690; 84702; 85025; 86140; 99282; A9270-GY

== ENCOUNTER 2018-08-14 12:33 | Emergency (ER) | payer OTHER ==
[2018-08-14 13:18] VITALS: BP 102/61
--- NOTE | 2018-08-14 14:06 | UC ---
Dizzy HPI HPI Summary: 5 DAYS OF FEELING LIGHTHEADED AND DIZZY. THIS MORNING STATES SHE HAD A HARD TIME EVEN GETTING OUT OF BED. HAS A HEADACHE AND NASAL CONGESTION. WAS SEEN IN THE ER YESTERDAY FOR PELVIC PAIN AND WAS DIAGNOSED WITH AN OVARIAN CYST AND GIVEN A LIDOCAINE PATCH. SHE WAS ALSO GIVEN A PRESCRIPTION FOR AZITHROMYCIN FOR PRESUMPTIVE OTITIS MEDIA. PT STATES HER EAR PAIN COMES AND GOES. WORSE AT NIGHT BUT NONE NOW. PATIENT LEFT THE ED PRIOR TO RECEIVING DISCHARGE INSTRUCTIONS AND SO WAS UNAWARE OF THESE PRESCRIPTIONS AND DID NOT PICK THEM UP. STATES TODAY'S VISIT IS UNRELATED. - History Of Current Complaint Chief Complaint: UCDizziness Stated Complaint: LOW BLOODSUGAR Time Seen by Provider: 08/14/18 13:10 Hx Obtained From: Patient Hx Last Menstrual Period: end of may Onset/Duration: Gradual Onset, Lasting Days, Still Present Timing: Constant Severity Initially: Moderate Severity Currently: Moderate Pain Intensity: 5 Pain Scale Used: 0-10 Numeric Character: Lightheaded, Dizzy Alleviating Factor(s): Nothing Associated Signs And Symptoms: Negative: Nausea, Vomiting, SOB, Change In Medication - Allergies/Home Medications Allergies/Adverse Reactions: Allergies Allergy/AdvReac Type Severity Reaction Status Date / Time aspirin Allergy increased Verified 08/14/18 13:19 bleeding Penicillins Allergy Rash Verified 08/14/18 13:19 terazosin Allergy Rash Verified 08/14/18 13:19 Strawberries Allergy Severe Airway Uncoded 08/14/18 13:19 Obstruction Bees Allergy Intermediate Swelling Uncoded 08/14/18 13:19 Home Medications: Home Medications Buprenorp/Nalox 4-1 MG FILM [Suboxone 4 mg-1 mg Sl Film] 1 film SL FILM DAILY [History Confirmed 08/14/18] PMH/Surg Hx/FS Hx/Imm Hx Respiratory History: Asthma Other History Of: Hepatitis C Negative For: Anticoagulant Therapy - Surgical History Surgical History: Yes Surgery Procedure, Year, and Place: TORSION CORRECTION- ovarian cysts. 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 Smoking Status (MU): Heavy Every Day Tobacco Smoker Type: Cigarettes Amount Used/How Often: 1/2PPD Length of Time of Smoking/Using Tobacco: 6 YEARS Have You Smoked in the Last Year: Yes Household Exposure Type: Cigarettes - Immunization History Most Recent Tetanus Shot: 08/15/2010 Vaccination Up to Date: Yes Review of Systems All Other Systems Reviewed And Are Negative: Yes Constitutional: Positive: Negative ENT: Positive: Nasal Discharge Respiratory: Positive: Negative Cardiovascular: Positive: Negative Gastrointestinal: Positive: Negative Neurological: Positive: Weakness, Other - DIZZY Physical Exam Triage Information Reviewed: Yes Appearance: No Pain Distress, Well-Nourished, Ill-Appearing - APPEARS UNCOMFORTABLE Vital Signs: Initial Vital Signs Temp 98.9 F 08/14/18 13:12 Pulse 72 08/14/18 13:12 Resp 18 08/14/18 13:12 BP 102/61 08/14/18 13:12 Pulse Ox 98 08/14/18 13:12 Vital Signs Reviewed: Yes Eyes: Positive: Conjunctiva Clear ENT: Positive: Hearing grossly normal, Pharynx normal, TMs normal - SCAR TISUE BUT NO CLEAR OTITIS Neck: Positive: Supple, Nontender, No Lymphadenopathy Respiratory Exam: Normal Cardiovascular Exam: Normal Abdomen Description: Positive: Soft, Other: - DIFFUSELY TENDER. NO REBOUND OR RIGIDITY. Negative: Distended, Guarding Bowel Sounds: Positive: Present Musculoskeletal: Positive: No Edema Neurological: Positive: Alert Psychological: Positive: Age Appropriate Behavior Skin: Negative: Rashes Dizzy Course/Dx - Course Course Of Treatment: UNCLEAR ETIOLOGY OF PATIENT'S SYMPTOMS. NO CLEAR EAR INFECTION ON EXAM TODAY. LAB WORK IN ED YESTERDAY WAS ALL UNREMARKABLE. PATIENT STATES SHE HASN'T HAD MUCH TO EAT OR DRINK TODAY. OFFERED IV FLUIDS WHICH PATIENT DECLINED. FLU SWAB WAS NEGATIVE. DISCUSSED TRANSFER BACK TO THE EMERGENCY DEPARTMENT FOR FURTHER EVALUATION. PATIENT DECLINED. I RECOMMENDED CAREFUL OBSERVATION AT HOME WITH LOW THRESHOLD FOR RETURN TO THE ED SHOULD HER SYMPTOMS WORSEN OR FAIL TO IMPROVE. PATIENT REQUESTED NOTE FOR WORK WHICH WAS PROVIDED. - Differential Dx/Diagnosis Provider Diagnosis: Dizziness of unknown cause Discharge - Sign-Out/Discharge Documenting (check all that apply): Patient Departure All imaging exams completed and their final reports reviewed: No Studies - Discharge Plan Condition: Stable Disposition: HOME Patient Education Materials: Viral Syndrome (ED) Forms: *Work Release Referrals: [facility] [Outside] - If Needed Additional Instructions: FLU SWAB NEGATIVE. YOUR LABS IN THE ER YESTERDAY WERE ALL UNREMARKABLE. UNCLEAR ETIOLOGY OF YOUR SYMPTOMS TODAY. YOU MAY HAVE PICKED UP A VIRAL ILLNESS THAT HOPEFULLY WILL RESOLVE ON ITS OWN IN THE NEXT FEW DAYS. STAY WELL RESTED AND HYDRATED. RETURN TO THE ER WITHOUT FAIL IF YOUR SYMPTOMS WORSEN - THAT IS IF YOU DEVELOP FEVER, WORSENING DIZZINESS, PAIN, NAUSEA/VOMITING OR ANY OTHER CONCERNING SYMPTOMS. THE PRESCRIPTIONS FOR THE TOPICAL LIDOCAINE PATCH AND THE ANTIBIOTICS ARE WAITING FOR YOU AT YOUR PHARMACY FROM YOUR ER VISIT YESTERDAY. GO AHEAD AND PICK THESE MEDICATIONS UP. THERE IS NO EVIDENCE OF EAR INFECTION ON YOUR EXAM TODAY BUT SHOULD YOU DECIDE TO START THE ANTIBIOTIC PLEASE TAKE IT FOR THE FULL COURSE TO HELP PREVENT DEVELOPING RESISTANCE TO THE MEDICATION. - Billing Disposition and Condition Condition: STABLE Disposition: Home
== END 2018-08-14 14:43 | disposition home or self-care (01) ==
LOC: UCEAST 12:33
DX: R42 Dizziness and giddiness (principal); J45.909 Unspecified asthma, uncomplicated; F17.210 Nicotine dependence, cigarettes, uncomplicated; Z88.6 Allergy status to analgesic agent; Z88.0 Allergy status to penicillin; Z88.8 Allergy status to other drugs, medicaments and biological substances; Z91.018 Allergy to other foods; Z91.030 Bee allergy status
CPT/HCPCS: 93005; 99211; G0463

== ENCOUNTER 2018-12-06 21:51 | Emergency (ER) | payer OTHER ==
--- NOTE | 2018-12-07 00:50 | ED ---
Abdominal Pain/Female - HPI Summary HPI Summary: The patient is a 28 y/o F presenting to [facility] with a chief complaint of diffuse suprapubic abd cramping starting two days ago. Today, after she had been active all day, she went to the bathroom and noticed that there was minimal vaginal spotting on two occasions without any blood clotting present. The spotting has since relieved. The pain is currently rated 6/10 in severity. She additionally c /o vaginal pressure, nausea, one episode of vomiting, decreased appetite, SOB with onset of cramping. There are no specific aggravating or alleviating factors. She is currently 19 weeks , due on May 04, 2019. She began feeling movement about three weeks ago, and the last movement she felt was this morning. A0. All past pregnancies were full-term vaginal births without complications. Her [facility] OF [facility] SUPERVIS[facility] is [facility]. - History of Current Complaint Chief Complaint: EDOBProblems Stated Complaint: 19 WEEKS , SPOTTING PER PT Time Seen by Provider: 12/07/18 00:41 Hx Obtained From: Patient Hx Last Menstrual Period: end of may Onset/Duration: Sudden Onset, Lasting Days - two days, Still Present - abdominal cramping is still present, Resolved - vaginal spotting has resolved Timing: Hours Severity Initially: Moderate Severity Currently: Moderate Pain Intensity: 6 Pain Scale Used: 0-10 Numeric Location: Suprapubic Radiates: No Character: Cramping Aggravating Factor(s): Nothing Alleviating Factor(s): Nothing Associated Signs and Symptoms: Positive: Decreased Appetite, Vaginal Bleeding - two episodes of spotting that have resolved, no clotting, Nausea, Vomiting - one episode, Other: - vaginal pressure, SOB with onset of cramping Allergies/Adverse Reactions: Allergies Allergy/AdvReac Type Severity Reaction Status Date / Time aspirin Allergy increased Verified 10/14/18 13:49 bleeding Penicillins Allergy Rash Verified 10/14/18 13:49 terazosin Allergy Rash Verified 10/14/18 13:49 Strawberries Allergy Severe Airway Uncoded 10/14/18 13:49 Obstruction Bees Allergy Intermediate Swelling Uncoded 10/14/18 13:49 PMH/Surg Hx/FS Hx/Imm Hx Endocrine/Hematology History: Denies: Hx Anticoagulant Therapy, Hx Diabetes, Hx Thyroid Disease Cardiovascular History: Denies: Hx Hypertension, Hx Pacemaker/ICD Respiratory History: Reports: Hx Asthma Denies: Hx Chronic Obstructive Pulmonary Disease (COPD) GI History: Denies: Hx Ulcer History: Denies: Hx Renal Disease Opthamlomology History: Denies: Hx Legally Blind Neurological History: Denies: Hx Dementia, Hx Seizures Psychiatric History: Denies: Hx Substance Abuse - Surgical History Surgery Procedure, Year, and Place: TORSION CORRECTION- ovarian cysts. 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 Denies: Hx Clostridium Difficile, Hx Human Immunodeficiency Virus (HIV), Hx Shingles, Hx Tuberculosis, Hx Known/Suspected VRE, Hx Known/Suspected VRSA, History Other Infectious Disease, Traveled Outside the [place] in Last 30 Days - Family History Known Family History: Positive: Cardiac Disease, Hypertension, Diabetes Negative: Renal Disease, Respiratory Disease, Seizure Disorder - Social History Alcohol Use: None Hx Substance Use: No Substance Use Type: Reports: None 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 Hx Tobacco Use: Yes Smoking Status (MU): Heavy Every Day Tobacco Smoker Type: Cigarettes Amount Used/How Often: 1/2PPD Length of Time of Smoking/Using Tobacco: 6 YEARS Have You Smoked in the Last Year: Yes Review of Systems Positive: Shortness Of Breath - with cramping Positive: Abdominal Pain - constant suprapubic cramping with intermittent episodes of worsening, Vomiting - one episode, Nausea, Other - decreased appetite secondary to abd cramping Positive: other - two episodes of minimal vaginal spotting without clots ( resolved), vaginal pressure All Other Systems Reviewed And Are Negative: Yes Physical Exam - Summary Physical Exam Summary: Appearance: well appearing, no pain distress Skin: warm, dry, reflects adequate perfusion Head/face: normal Eyes: EOMI, JOAQUÍN ENT: mucous membranes moist Neck: supple, non-tender Respiratory: CTA, breath sounds present Cardiovascular: RRR, pulses symmetrical Abdomen: non-tender, soft Bowel Sounds: present Musculoskeletal: normal, strength/ROM intact Neuro: normal, sensory motor intact, A&Ox3 Pelvic Exam: Cervix closed, no blood, slight white discharge Triage Information Reviewed: Yes Vital Signs On Initial Exam: Initial Vitals Temp Pulse Resp BP Pulse Ox 98.3 F 95 18 109/60 100 12/06/18 22:08 12/06/18 22:08 04/24/19 22:08 12/06/18 22:08 12/06/18 22:08 Vital Signs Reviewed: Yes Diagnostics - Vital Signs Vital Signs Temp Pulse Resp BP Pulse Ox 12/07/18 00:21 86 123/66 97 12/07/18 00:18 87 99 12/06/18 22:08 98.3 F 95 18 109/60 100 - Laboratory Lab Statement: Any lab studies that have been ordered have been reviewed, and results considered in the medical decision making process. - Ultrasound No standard instances Ultrasound Interpretation Completed By: ED Physician Summary of Ultrasound Findings: US performed at bedside by ED physician. heart tone with rate of 146 BPM. Fetus active. No abruption. Measuring 20 weeks by BPD by bedside US. Re-Evaluation - Re-Evaluation First Eval Re-Evaluation Time: 02:25 Change: Unchanged Comment: We discussed discharge based on results thus far. She will follow up with her RIGHT OF WAY SUPERVISOR tomorrow concerning visit. Abdominal Pain Fem Course/Dx - Course Course Of Treatment: Nurses notes reviewed. Patient with no bleeding on vaginal exam and has blood type O positive. Her fetus is viable with heart tones and appropriate size for dates. Fetus is active on ultrasound. No abruption. Likely Marcial Alcocer contractions. Patient is very comfortable and has had any significant discomfort here. - Diagnoses Differential Diagnosis: Positive: Other - Missed or incomplete , Marcial Alcocer contractions, abruption, threatened Provider Diagnoses: Bent Alcocer' contraction Is Visit Related: Yes - Patient is 19 weeks pregant with two previous normal pregnancies. Discharge - Sign-Out/Discharge Documenting (check all that apply): Patient Departure - Patient will be discharged home. Patient Received Moderate/Deep Sedation with Procedure: No - Discharge Plan Condition: Improved Disposition: HOME Patient Education Materials: Bent Alcocer Contractions (ED) Forms: *Work Release Referrals: Seven Hamlin MD [Medical Doctor] - Additional Instructions: Call your dock associate first thing in the morning to schedule prompt follow-up. Tylenol as needed for discomfort. Return if worse, new symptoms or other concerns. - Billing Disposition and Condition Condition: IMPROVED Disposition: Home - Attestation Statements Document Initiated by Scribe: Yes Documenting Scribe: Sandrine Elias Provider For Whom Scribe is Documenting (Include Credential): Dr. Larry Kincaid MD Scribe Attestation: I, Sandrine Elias, scribed for Dr. Larry Kincaid MD on 12/07/18 at 0412. Scribe Documentation Reviewed: Yes Provider Attestation: The documentation as recorded by the scribe, Sandrine Elias accurately reflects the service I personally performed and the decisions made by me, Dr. Larry Kincaid MD Status of Scribe Document: Viewed
[2018-12-07 02:33] VITALS: BP 113/69
== END 2018-12-07 02:37 | disposition home or self-care (01) ==
LOC: ED 21:51
DX: O47.02 False labor before 37 completed weeks of gestation, second trimester (principal); O99.331 Smoking (tobacco) complicating pregnancy, first trimester; Z3A.19 19 weeks gestation of pregnancy
CPT/HCPCS: 76815; 99282

== ENCOUNTER 2019-01-30 13:43 | Emergency (ER) | payer OTHER ==
[2019-01-30 14:10] VITALS: BP 99/60
--- NOTE | 2019-01-30 15:01 | UC ---
Throat Pain/Nasal Elliott HPI - HPI Summary HPI Summary: pt is 20+ week gravid with head congestion, left ear pain, pnd, cough and wheeze. Pt with good movemen. no fever, chills. + fatigue + po. Pt with h /o asthma + tobacco use. Pt has MDI - uses this - pt has nebulizer - no meds Meds reviewed no PCP - History of Current Complaint Chief Complaint: UCEar Stated Complaint: EAR/SINUS Time Seen by Provider: 01/30/19 15:01 Hx Obtained From: Patient Hx Last Menstrual Period: end of may ?: Yes Onset/Duration: Gradual Onset Pain Intensity: 4 - Allergies/Home Medications Allergies/Adverse Reactions: Allergies Allergy/AdvReac Type Severity Reaction Status Date / Time aspirin Allergy increased Verified 01/30/19 14:10 bleeding Penicillins Allergy Rash Verified 01/30/19 14:10 terazosin Allergy Rash Verified 01/30/19 14:10 Strawberries Allergy Severe Airway Uncoded 01/30/19 14:10 Obstruction Bees Allergy Intermediate Swelling Uncoded 01/30/19 14:10 PMH/Surg Hx/FS Hx/Imm Hx Previously Healthy: Yes Other History Of: Hepatitis C Negative For: Anticoagulant Therapy - Surgical History Surgical History: Yes Surgery Procedure, Year, and Place: TORSION CORRECTION- ovarian cysts. 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 Smoking Status (MU): Light Every Day Tobacco Smoker Type: Cigarettes Amount Used/How Often: 1/2PPD Length of Time of Smoking/Using Tobacco: 6 YEARS Have You Smoked in the Last Year: Yes Household Exposure Type: Cigarettes - Immunization History Most Recent Tetanus Shot: 08/15/2010 Vaccination Up to Date: Yes Review of Systems All Other Systems Reviewed And Are Negative: Yes Constitutional: Positive: Fatigue Skin: Positive: Negative ENT: Positive: Sore Throat, Ear Ache, Nasal Discharge, Sinus Congestion Respiratory: Positive: Cough Physical Exam - Summary Physical Exam Summary: Vital Signs Reviewed: Yes A+Ox3, no distress, coarse cough Eyes: Conjunctiva Clear, JOAQUÍN. EOM intact and full ENT: Hearing grossly normal left ear ++ fluid, erythema, turbinates boggy + PND mmoist, uvula midline, no exudate, no erythema Neck: Positive: Supple Respiratory: Positive: No respiratory distress, No accessory muscle use speaking full sentences,scattered wheeze. no accessory muscle Cardiovascular: RRR nl s1, s2 no m/r CBT <2 sec abd soft grravid + BS nt/nd no guarding, no distension Musculoskeletal Exam: BARNES x 4 without difficulty Strength Intact, ROM Intact Neurological: Positive: Alert, + sensation throughout Psychological: Positive: Normal Response To Family Skin: Positive: no rash, no ecchymosis Triage Information Reviewed: Yes Vital Signs: Initial Vital Signs Temp 97.7 F 01/30/19 14:04 Pulse 89 01/30/19 14:04 Resp 18 01/30/19 14:04 BP 99/60 01/30/19 14:04 Pulse Ox 98 01/30/19 14:04 Re-Evaluation - Re-Evaluation First Eval Change: Improved - pt improved following neb, no wheeze will rx abx, MDI/neb. nasal steroid spray Throat Pain/Nasal Course/Dx - Course Course Of Treatment: pt with progressive head congestion, ear pain and wheeze pt gravid vss pt with left ear infection, sinus congestion and scattered wheeze will give neb and reassess - Differential Dx/Diagnosis Provider Diagnosis: Otitis media, Bronchitis Discharge - Sign-Out/Discharge Documenting (check all that apply): Patient Departure All imaging exams completed and their final reports reviewed: No Studies - Discharge Plan Condition: Stable Disposition: HOME Prescriptions: Albuterol 2.5MG/3ML (0.083%)* [Ventolin 2.5 MG/3 ML NEB.MARTY*] 2.5 mg INH Q4H # 30 neb.marty Azithromycin TAB* [Zithromax TAB (Z-SAUD) 250 mg #6 tabs] 2 tab PO .TODAY, THEN 1 DAILY #1 saud Inhaler, Assist Devices [Aerochamber Mv] 1 each PO Q4HR #1 spacer Patient Education Materials: Acute Bronchitis (ED) Referrals: [facility] [place] [facility] REFERRAL [Outside] No Primary Care Phys,NOPCP [Primary Care Provider] - Additional Instructions: -Take antibiotics exactly as prescribed until gone -Use your albuterol puffer or nebulizer- 2 puffs every 4 hours for the next 2 days - then as needed -Stay well hydrated - avoid excess caffeine and all alcohol - eat regular, healthy meals - - humidify the air in the room where you sleep - boil water, run a hot steam shower, vaporizer, cups of water by heat register -- These infections are spread by secretions - do NOT share eating or drinking utensils - clean items you share with other people such as cell phones, computer mouse, TV remote, computer tablets,etc.. Once you have been antibiotics for 2 days, change your toothbrush and your pillowcase. - use nasal spray as prescribed - work to decrease cigarette smoke use and exposure -Contact the physician referral center for assistance establishing with a primary care provider. Call your doctor, return here or go to the emergency department with any questions or concerns - Billing Disposition and Condition Condition: STABLE Disposition: Home
[2019-01-30] MEDS ORDERED: Albuterol/Ipratropium NEB.SOL* Albuterol 2.5 MG/Ipratropium 0.5 MG 3 ML INH ONE (15:10)
== END 2019-01-30 15:40 | disposition home or self-care (01) ==
LOC: UCEAST 13:43
DX: O26.892 Other specified pregnancy related conditions, second trimester (principal); H66.92 Otitis media, unspecified, left ear; J40 Bronchitis, not specified as acute or chronic; Z3A.20 20 weeks gestation of pregnancy; Z88.6 Allergy status to analgesic agent; Z91.030 Bee allergy status; Z88.0 Allergy status to penicillin; Z88.8 Allergy status to other drugs, medicaments and biological substances; Z91.018 Allergy to other foods; F17.210 Nicotine dependence, cigarettes, uncomplicated
CPT/HCPCS: 99212; A9270-GY; G0463

== ENCOUNTER 2019-05-05 16:08 | Inpatient (IN) | payer OTHER ==
[2019-05-05 17:00] LABS: Urine Benzodiazepine Screen None Detected (None Detect); Urine Opiates Screen None Detected (None Detect)
[2019-05-05] MEDS ORDERED: Lactated Ringers 1000 ML Bag* 1,000 ML IV ONE (17:22)
[2019-05-05] MEDS ORDERED: Buffered Lidocaine 1% SYRIN* 1 ML/SYRINGE INTRADERM ONE (17:22)
[2019-05-05] MEDS ORDERED: Lactated Ringers 1000 ML Bag* 1,000 ML IV SCH (18:00)
[2019-05-05] MEDS ORDERED: Oxytocin in LR* 20 UNITS/1,000 ML BAG IVPB SCH (19:00)
[2019-05-05 19:46] LABS: ABS Eosinophils 0.2 10^3/ul (0-0.6); ABS Lymphocytes 2.1 10^3/ul (1.0-4.8); ABS Monocytes 0.4 10^3/ul (0-0.8); Eosinophil % 1.9 %; Hematocrit 34 % (35-47); Hemoglobin 11.9 g/dL (12.0-16.0); Lymphocyte % 21.7 %; Mean Corpuscular HGB Conc 35 g/dL (31-36); Mean Corpuscular Hemoglobin 31 pg (27-31); Mean Corpuscular Volume 90 fL (80-97); Mean Platelet Volume 8.6 fL (7.4-10.4); Platelet Count 200 10^3/uL (150-450); Red Blood Count 3.79 10^6 /uL (3.70-4.87); Red Cell Distribution Width 13 % (10-15); White Blood Count 9.7 10^3/uL (3.5-10.8)
[2019-05-05] MEDS ORDERED: Buprenorphine TAB* 2 MG TAB.SL PO SCH (20:00)
--- NOTE | 2019-05-05 20:42 | HP ---
General Information - Reason for Visit Pt with SROM to clear fluid at 1530. Reports ctx painful but not regular. - General Information Maternal Age: 28 Grav: 4 Para: 2 SAB: 1 IEA: 0 Estimated Due Date: 05/04/19 Determined By: Early Ultrasound Maternal Blood Type and Rh: O Positive - Results this Serology/RPR Result: Non-Reactive Rubella Result: Immune HBsAg Result: Negative HIV Result: Negative GBS Culture Result: Negative Past Medical History Delivery History: Hx Uncomplicated Vaginal Delivery Pertinent Past Medical History: See Records - hx substance use disorder, on subutex; asthma, anxiety, degenerative disk disease, Hep C (cured) Pertinent Past Surgical History: See Records - myringotomy, lap ovarian cystectomy Pertinent Family History: See Records - mental health issues - Antepartal Records Antepartal Records: Reviewed, Complicated by: - on subutex Review of Systems Constitutional: Uncomfortable CV Complaint: No Respiratory: Shortness of Breath: No Gastrointestinal: No Nausea/Vomiting, Normal Bowel Movement Genitourinary: Leaking Fluid, No Dysuria, No Bleeding Musculoskeletal: No Epigastric Pain, Contractions Neurological: No Headache, No Visual Changes Movement: Normal Exam Allergies/Adverse Reactions: Allergies strawberry Allergy (Severe, Verified 05/05/19 16:58) Airway Obstruction bee pollen Allergy (Intermediate, Verified 05/05/19 16:58) Swelling bee venom protein (honey bee) Allergy (Intermediate, Verified 05/05/19 16:58) Swelling aspirin Allergy (Verified 05/05/19 16:58) increased bleeding Penicillins Allergy (Verified 05/05/19 16:58) Rash terazosin Allergy (Verified 05/05/19 16:58) Rash BP- 121/75, T-97.0, 18-R, p-99, O2-100% Lab Values - Entire Visit: Laboratory Tests 05/05/19 05/05/19 05/05/19 16:25 16:25 19:00 WBC 9.7 RBC 3.79 Hgb 11.9 L Hct 34 L MCV 90 MCH 31 MCHC 35 RDW 13 Plt Count 200 MPV 8.6 Neut % (Auto) 72.1 Lymph % (Auto) 21.7 [place] % (Auto) 4.2 Eos % (Auto) 1.9 Baso % (Auto) 0.1 Absolute Neuts (auto) 7.0 Absolute Lymphs (auto) 2.1 Absolute Monos (auto) 0.4 Absolute Eos (auto) 0.2 Absolute Basos (auto) 0.0 Absolute Nucleated RBC 0.0 Nucleated RBC % 0.0 Vag Amniotic Fld Detect Positive Urine Opiates Screen None detected Ur Barbiturates Screen None detected Ur Phencyclidine Scrn None detected Ur Amphetamines Screen None detected U Benzodiazepines Scrn None detected Urine Cocaine Screen None detected U Cannabinoids Screen None detected Blood Type Antibody Screen 05/05/19 19:00 WBC RBC Hgb Hct MCV MCH MCHC RDW Plt Count MPV Neut % (Auto) Lymph % (Auto) [place] % (Auto) Eos % (Auto) Baso % (Auto) Absolute Neuts (auto) Absolute Lymphs (auto) Absolute Monos (auto) Absolute Eos (auto) Absolute Basos (auto) Absolute Nucleated RBC Nucleated RBC % Vag Amniotic Fld Detect Urine Opiates Screen Ur Barbiturates Screen Ur Phencyclidine Scrn Ur Amphetamines Screen U Benzodiazepines Scrn Urine Cocaine Screen U Cannabinoids Screen Blood Type O Positive Antibody Screen Negative - Measurements Height: 5 ft 2 in Weight: 79.832 kg Weight in lbs: 176.658462 Body Mass Index (BMI): 32.1 Pre- Weight: 72.575 kg Weight Gained This : 16 lbs and 0 ozs - Exam Breast: Breast Exam Deferred CVA: No CVA Tenderness Extremities: No Edema Heart: Normal Rhythm/Heart Sounds HEENT: No Significant Findings Lungs: Clear Bilaterally Rectal: Rectal Exam Deferred Reflexes: DTR 2+ Thyroid: No Thyromegaly - Abdominal Exam Abdomen Exam: Non-Tender, Fundal Height Consistent with Dates - Ultrasound/Biophysical Profile Ultrasound Status: Not Done Targeted Exam Findings See L&D Outpatient Visit Provider Note for Findings: N/A Estimated Weight: 6.5# Cervical Exam: 4cm Effacement: 70% Station: -2 Presenting Part: Vertex Membrane Status: SROM Amniotic Fluid Evaluation: Positive ROM Plus Bleeding/Discharge: None EFM Findings - External Monitor Findings Baseline Heart Rate: 135 External Monitor Findings: No Pattern of Variable or Late Decelerations, Variability Moderate, Baseline Stable, Accelerations Absent Contractions: Irregular, Mild, Moderate, 45-90 Seconds Assessment/Plan - Assessment 28 year old at 40 1/7 weeks gestation with rupture of membranes in early labor. No evidence of acidemia, no evidence of chorioamnionitis. - Plan Plan: Admit - Anticipate Vaginal Delivery Plan Comment: Discussed options with pt. Pt is 4cm dilated but that is consistent with previous exam. Pt desires augmentation. Will start Pitocin augmentation. - Date/Time of Admission Date of Admission: 05/05/19 Time of Admission: 17:17
--- NOTE | 2019-05-05 22:16 | PN ---
Progress Note - Progress Note Date of Service: 05/05/19 SOAP: Subjective: Pt more uncomfortable, reports increased pressure. Coping well, family at bedside. Objective: Cervix: 4cm/ posterior/ -1/ 70% FHR: Baseline 140/ moderate variability/ + accels/ no decels UCs: 2-3 minutes, some stronger than others Temp: 98.5 Assessment: Pt without much cervical change at this time. No evidence of acidemia or chorioamnionitis. Plan: Continue Pitocin augmentation. Encourage regular position changes. Anticipate .
--- NOTE | 2019-05-06 01:45 | PN ---
Progress Note - Progress Note Date of Service: 05/06/19 SOAP: Subjective: Pt uncomfortable with ctx, feels they are increasing in strength. Denies urge to push Objective: Cervix: 4-5 cm/ posterior/ 70%/ vtx/ -1. FHR: Baseline 130/ moderate/ + accels/ no decels UCs: 2-4, varying strength Temp:98.5, BP: 117/68 Fluid clear Pitocin at 8 mu/min Assessment: Pt continues to progress slpwly, in early labor, not quite active labor yet. Coping well. No evidence of acidemia or chorioamnionitis. Plan: AROM of forebag performed to clear fluid. Continue Pitocin augmentation. Recheck with urge to push, in a few hours, or as needed.
[2019-05-06] MEDS ORDERED: Dibucaine 1% 28.35 GM TUBE PR PRN (05:06)
[2019-05-06] MEDS ORDERED: Acetaminophen TAB* 325 MG PO PRN (05:06)
[2019-05-06] MEDS ORDERED: Witch Hazel PAD* JAR TOPICAL PRN (05:06)
[2019-05-06] MEDS ORDERED: Glycerin ADULT SUPP PR PRN (05:06)
[2019-05-06] MEDS ORDERED: Oxytocin in LR* 20 UNITS/1,000 ML BAG IVPB SCH (06:00)
[2019-05-06] MEDS ORDERED: Lactated Ringers 1000 ML Bag* 1,000 ML IV SCH (06:00)
[2019-05-06] MEDS: Ibuprofen TAB* 600 MG PO PRN ×3 (06:46→22:01)
[2019-05-06] MEDS: Buprenorphine TAB* 8 MG PO SCH (08:44)
[2019-05-06] MEDS: Docusate CAP* 100 MG PO SCH ×3 (08:45→20:05)
[2019-05-06] MEDS ORDERED: Tetan/Diph/Pertus SYR(Tdap)* 0.5 ML SYR(BOOSTRIX) use SYR IM ONE (09:00)
[2019-05-06] MEDS: Sertraline* 100 MG TAB PO SCH (10:42)
--- NOTE | 2019-05-06 21:26 | PROCNOTE ---
[facility] [place] OB: Delivery Note - Delivery A Date of : 05/06/19 Time of : 04:29 [place] Sex: Male Weight at : 3.295 kg Score 1 Minute: 9 Score 5 Minutes: 9 Gestational Age in Weeks and Days at Delivery: 40 Weeks and 2 Days Delivery Method: Spontaneous Vaginal Labor: Spontaneous Did Patient attempt ?: N/A, No Previous Amniotic Fluid: Clear Estimated Blood Loss: 250 Anesthesia/Analgesia: Nitrous-Labor Delivered By: Viviana Hernandez Nursery Level of Nursery: Regular/Bedside - Perineum Perineal Injury: None/Intact Perineal Repair: None - Events Delivery Events of Note: Pitocin During Labor - Additional Delivery Notes Additional Delivery Notes: Pt admitted following SROM in early labor. Pt opted to augment with Pitocin and progressed steadily into active labor. Pt utilized nitrous oxide for pain relief. She progressed steadily to complete dilation and began to push spontaneously. Pt pushed with good effort and rapid descent. Infant quickly brought to , and pt coached through slow, controlled delivery of the head. Infant to maternal abdomen with vigorous cry, good tone, HR> 100. When cord pulsation ceased, cord clamped x2 and cut by infant's father. Placenta soon delivered, spontaneous and georgi. Following delivery of placenta , Pitocin increased to 250 cc/hr. Bleeding minimal. Pt and stable at this time, anticipate normal course.
[2019-05-07] MEDS: Ibuprofen TAB* 600 MG PO PRN ×2 (05:07→12:21)
[2019-05-07 05:44] LABS: ABS Eosinophils 0.4 10^3/ul (0-0.6); ABS Lymphocytes 3.3 10^3/ul (1.0-4.8); ABS Monocytes 0.6 10^3/ul (0-0.8); Hematocrit 32 % (35-47); Hemoglobin 11.2 g/dL (12.0-16.0); Lymphocyte % 31.9 %; Mean Corpuscular HGB Conc 35 g/dL (31-36); Mean Corpuscular Hemoglobin 32 pg (27-31); Mean Corpuscular Volume 91 fL (80-97); Mean Platelet Volume 8.2 fL (7.4-10.4); Platelet Count 189 10^3/uL (150-450); Red Blood Count 3.54 10^6 /uL (3.70-4.87); Red Cell Distribution Width 13 % (10-15); White Blood Count 10.2 10^3/uL (3.5-10.8)
[2019-05-07 08:03] VITALS: BP 105/62
[2019-05-07] MEDS: Buprenorphine TAB* 8 MG PO SCH (08:26)
[2019-05-07] MEDS: Docusate CAP* 100 MG PO SCH ×2 (08:26→15:03)
[2019-05-07] MEDS ORDERED: Ferrous Gluconate TAB* 324 MG TAB PO SCH (09:00)
[2019-05-07] MEDS: Sertraline* 100 MG TAB PO SCH (12:20)
[2019-05-07] MEDS ORDERED: Influenza VAC *QUAD* 2019-20* 0.5 ML SYRINGE IM ONE (16:00)
== END 2019-05-07 17:43 | disposition home or self-care (01) | DRG 560 ==
LOC: MCHOBOUT 16:08 → MCHOB 17:17
PROVIDERS: ADMIT Midwife; ATTEND Midwife
PROC: 10E0XZZ Delivery of Products of Conception, External Approach (ICD-10-PCS; principal; 2019-05-06)
DX: O48.0 Post-term pregnancy (principal); Z37.0 Single live birth; O99.334 Smoking (tobacco) complicating childbirth; O99.52 Diseases of the respiratory system complicating childbirth; O99.344 Other mental disorders complicating childbirth; F41.9 Anxiety disorder, unspecified; J45.909 Unspecified asthma, uncomplicated; F19.21 Other psychoactive substance dependence, in remission; Z3A.40 40 weeks gestation of pregnancy
CPT/HCPCS: 36415; 80307; 84112; 85025; 86850; 86900; 86901; 87641; 90686; 90715; A9270-GY